=== PATIENT | female | born 1960 | race Caucasian/White ===

== ENCOUNTER 2024-08-10 05:10 | Emergency (ER) | payer MEDICARE, OTHER ==
[2024-08-10 05:16] VITALS: BMI 25.0
[2024-08-10] MEDS ORDERED: ASPIRIN 81 MG CHEWABLE TABLETS ONE (05:40)
[2024-08-10] MEDS: ASPIRIN 81 MG CHEWABLE TABLETS PO ONE (05:48)
[2024-08-10 06:06] LABS: INR 1.27 (0.83-1.09); PROTHROMBIN TIME (PATIENT) 13.8 SEC (9.7-13.0)
[2024-08-10 06:09] LABS: ACTIVATED PTT 29.4 SECONDS (25.2-36.5)
[2024-08-10 06:16] LABS: HEMATOCRIT 36.5 % (34.1-44.9); HEMOGLOBIN 11.8 g/dL (11.2-15.7); MCHC 32.3 g/dl (32.2-35.5); MEAN CELL VOLUME 85.1 fl (79.4-94.8); MEAN PLT VOLUME 11.6 fl (9.4-12.3); PLATELET COUNT 220 x10^3/uL (182-369); RDW 13.3 % (12.4-16.4)
[2024-08-10 06:19] LABS: POTASSIUM 3.7 mmol/L (3.5-5.1)
[2024-08-10 06:21] LABS: BLOOD UREA NITROGEN 22.4 mg/dL (7-18); CALCIUM 9.4 mg/dL (8.5-10.1)
[2024-08-10 06:22] LABS: ALBUMIN 3.4 g/dl (3.4-5.0)
[2024-08-10 06:25] LABS: CREATININE 0.7 mg/dL (0.55-1.3)
[2024-08-10 06:26] LABS: BILIRUBIN,TOTAL 0.7 mg/dL (0.2-1); TOT PROT 7.6 g/dl (6.4-8.2)
[2024-08-10 07:30] VITALS: BP 127/76; PULSE 98; RESP 20; TEMP 98.5
[2024-08-10] MEDS: LACTATED RINGERS SOLUTION 1,000 ML/1,000 ML INFUS.BAG IV STA (07:40)
[2024-08-10] MEDS: SODIUM CHLORIDE 0.9% 500 ML INFUS.BAG IV ONE (07:41)
[2024-08-10 09:16] LABS: ERYTHROCYTE SEDIMENTATION RATE 79 mm/hr (0-30)
== END 2024-08-10 07:46 | disposition short-term general hospital (02) ==
LOC: JER 05:10
PROC: 3E0337Z Introduction of Electrolytic and Water Balance Substance into Peripheral Vein, Percutaneous Approach (ICD-10-PCS; principal; 2024-08-10)
DX: R07.2 Precordial pain (principal); R11.0 Nausea; R53.83 Other fatigue
CPT/HCPCS: 36415; 71045-TC-FY; 80053; 84484; 85027; 85610; 85651; 85730; 86140; 93005; 93010; 99291